=== PATIENT | female | born 1990 | race Caucasian/White ===

== ENCOUNTER → 2019-08-09 14:25 | Outpatient (CLI) | payer OTHER, SELFPAY ==
--- NOTE | 2019-08-09 | DI.ECHO.S_ITS ---
[place] [facility]---------+ [facility] +---------+ : : [address] : [address] [address] : : : : [id number] : : : : Phone: [phone]+ Echocardiogram Report + + :Name: TRISTAN DELGADO Study Date: 08/09/2019 Height: 65 in : :[facility] Weight: 130 lb : : Gender: Female BSA: 1.6 m2 : :: 1990 Age: 28 yrs BP: 116/72 mmHg: :Reason For Study: MURMUR : : Performed By: [facility] Staff : :Referring: DRE LADD : + + Interpretation Summary The left ventricle is normal in size. The ejection fraction is estimated to be 60-65%. The right ventricle is normal in size and function. No significant valvular pathology seen. Procedure: A two-dimensional transthoracic echocardiogram with color flow and Doppler was performed. The study quality was technically good. There is no prior echocardiogram noted for this patient. The patient was in normal sinus rhythm during the exam. Left Ventricle: The left ventricle is normal in size. There is normal left ventricular wall thickness. There is no thrombus. Left ventricular systolic function is normal. The ejection fraction is estimated to be 60-65%. Left ventricular wall motion is normal. Diastolic parameters suggest probable normal left ventricular diastolic function and normal filling pressures. Right Ventricle: The right ventricle is normal in size and function. The right ventricular systolic function is normal. Atria: The left atrium is borderline dilated. Right atrial size is normal. The interatrial septum is intact with no evidence for an atrial septal defect. Mitral Valve: The mitral valve is normal in structure and function. There is no mitral regurgitation noted. Aortic Valve: The aortic valve is trileaflet. The aortic valve opens well. There is no aortic valve stenosis. No aortic regurgitation is present. Tricuspid Valve: The tricuspid valve is normal in structure and function. There is trace tricuspid regurgitation. Pulmonary artery pressures cannot be estimated because of the lack of a measurable TR jet velocity. Pulmonic Valve: The pulmonic valve is normal in structure and function. There is trace pulmonic regurgitation. Great Vessels: The aortic root is normal size. The dimensions of the ascending aorta are normal. The pulmonary artery is normal size. The IVC is of normal diameter and collapses greater than 50% with a sniff. This suggests a low right atrial pressure of 3 mm Hg. Pericardium/ Pleura There is no pericardial effusion. There is no pleural effusion. MMode/2D Measurements & Calculations LVIDd: 4.3 cm LVOT diam: 1.8 cm LVIDs: 2.7 cm Ao root diam: 2.5 cm FS: 37.1 % EPSS: 0.21 cm IVSd: 1.0 cm LVPWd: 0.83 cm LV fuentes. diameter/BSA (cm/m^2): 2.6 LV sys. diameter/BSA (cm/m^2): 1.6 LA A2 area: 16.6 cm2 RA long axis: 4.3 cm LA A4 area: 19.1 cm2 RA area: 11.0 cm2 LA length (vol): 4.8 cm RA vol: 24.0 ml LA vol: 55.8 ml RA : 14.6 ml/m2 LA vol index: 33.9 ml/m2 TAPSE: 2.7 cm Doppler Measurements & Calculations Ao V2 max: 150.8 cm/sec LVOT Max Amor: 135.7 cm/sec Ao V2 mean: 105.4 cm/sec LV V1 max P.4 mmHg Ao max P.1 mmHg LV V1 VTI: 28.6 cm Ao mean P.0 mmHg JENNIFER(I,D): 2.4 cm2 Ao V2 VTI: 31.6 cm JENNIFER(V,D): 2.4 cm2 sev ratio: 0.91 JENNIFER indexed to BSA (cm^2/m^2): 1.5 MV E max amor: 99.0 cm/sec PA V2 max: 109.3 cm/sec MV A max amor: 61.1 cm/sec PA V2 mean: 77.6 cm/sec MV E/A: 1.6 PA mean P.7 mmHg Med Peak E' Amor: 12.5 cm/sec PA Accel Time: 0.14 sec E/E' med: 7.9 Lat Peak E' Amor: 19.3 cm/sec E/E' lat: 5.1 E/e' average: 6.5 MV dec time: 0.19 sec SV(LVOT): 75.6 ml Reading Physician:07:18 PM
== END ==
PROVIDERS: Visit Provider Physician Assistant
DX: R01.1 Cardiac murmur, unspecified (principal)
CPT/HCPCS: 93306

== ENCOUNTER → 2023-02-17 11:15 | Outpatient (CLI) | payer OTHER, SELFPAY | PROVIDERS: PCP Family Medicine; Visit Provider Family Medicine | DX: J02.9 Acute pharyngitis, unspecified (principal) | CPT/HCPCS: 87070 ==

== ENCOUNTER → 2023-04-06 13:03 | Outpatient (CLI) | payer OTHER, SELFPAY ==
[2023-04-06 19:43] LABS: Alanine Aminotransferase 15 IU/L (<35); Albumin 4.7 g/dL (3.5-5.0); Albumin Globulin Ratio 1.4 (1.0-2.8); Alkaline Phosphatase 51 U/L (38-126); Aspartate Aminotransferase 25 IU/L (14-36); BUN Creatinine Ratio 14.9 (6-22); Bilirubin Total 0.2 mg/dL (0.2-1.3); Blood Urea Nitrogen 10 mg/dL (7-17); Calcium 9.5 mg/dL (8.4-10.2); Carbon Dioxide 28 mmol/L (22-32); Chloride 103 mmol/L (98-107); Cholesterol 175 mg/dL (140-199); Estimated Glomerular Filt Rate > 60 mL/min (>60); Globulin 3.3 g/dL (1.7-4.1); Glucose 111 mg/dL (70-100); HDL Cholesterol 60 mg/dL (40-60); HEMOLYSIS < 15 (0-50); LDL Cholesterol Calculated 91 mg/dL (<100); Sodium 139 mmol/L (137-145); Triglycerides 118 mg/dL (35-150)
[2023-04-06 19:50] LABS: Add Manual Diff / Slide Review NO; Basophils Absolute Auto 0 /uL (0-100); Basophils Percent Auto 0.7 % (0-2); Eosinophils Absolute Auto 0 /uL (0-450); Eosinophils Percent Auto 1.1 % (2-4); Hematocrit 34.7 % (36-46); Hemoglobin 11.4 g/dL (12.0-16.0); Lymphocytes Absolute Auto 1200 /uL (1100-4500); Lymphocytes Percent Auto 28.3 % (25-40); Mean Corpuscular HGB Conc 32.9 % (30-36); Mean Corpuscular Hemoglobin 25.5 PG (26-34); Mean Corpuscular Volume 77.6 fL (80-100); Monocytes Absolute Auto 400 /uL (0-900); Monocytes Percent Auto 9.1 % (3-14); Neutrophils Absolute Auto 2700 /uL (1500-7000); Neutrophils Percent Auto 60.8 % (50-75); Platelet Count 301 X10^3/uL (150-400); Red Blood Cell Count 4.47 X10^6/uL (4.0-5.2); White Blood Cell Count 4.4 X10^3/uL (4.5-11.0)
[2023-04-06 20:17] LABS: Ferritin 4 ng/mL (6-137)
[2023-04-06 20:32] LABS: Vitamin B12 Reflex MMA if <400 276 pg/mL (239-931)
[2023-04-11 14:42] LABS: Methylmalonic Acid,Serum 177 nmol/L (0-378)
== END ==
PROVIDERS: PCP Family Medicine; Visit Provider Family Medicine
DX: Z13.1 Encounter for screening for diabetes mellitus (principal); Z13.6 Encounter for screening for cardiovascular disorders; Z78.9 Other specified health status
CPT/HCPCS: 80053; 80061; 82607; 82728; 83921; 85025

== ENCOUNTER → 2023-07-20 10:52 | Outpatient (CLI) | payer OTHER, SELFPAY ==
[2023-07-20 19:17] LABS: Add Manual Diff / Slide Review NO; Basophils Absolute Auto 100 /uL (0-100); Basophils Percent Auto 0.9 % (0-2); Eosinophils Absolute Auto 0 /uL (0-450); Eosinophils Percent Auto 0.5 % (2-4); Hematocrit 35.5 % (36-46); Hemoglobin 11.7 g/dL (12.0-16.0); Lymphocytes Absolute Auto 1400 /uL (1100-4500); Lymphocytes Percent Auto 19.2 % (25-40); Mean Corpuscular HGB Conc 33.1 % (30-36); Mean Corpuscular Volume 78.8 fL (80-100); Monocytes Absolute Auto 600 /uL (0-900); Neutrophils Absolute Auto 5000 /uL (1500-7000); Neutrophils Percent Auto 70.4 % (50-75); Platelet Count 296 X10^3/uL (150-400); Red Cell Distribution Width 15.8 % (11.6-14.8); White Blood Cell Count 7.1 X10^3/uL (4.5-11.0)
[2023-07-20 19:57] LABS: Ferritin 5 ng/mL (6-137)
[2023-07-20 20:12] LABS: Vitamin B12 304 pg/mL (239-931)
== END ==
PROVIDERS: PCP Family Medicine; Visit Provider Family Medicine
DX: D50.9 Iron deficiency anemia, unspecified (principal); E53.8 Deficiency of other specified B group vitamins
CPT/HCPCS: 82607; 82728; 85025

== ENCOUNTER → 2023-10-27 12:02 | Outpatient (CLI) | payer OTHER, SELFPAY ==
[2023-10-27 19:23] LABS: Add Manual Diff / Slide Review NO; Basophils Absolute Auto 0 /uL (0-100); Basophils Percent Auto 0.6 % (0-2); Eosinophils Absolute Auto 0 /uL (0-450); Eosinophils Percent Auto 0.8 % (2-4); Hematocrit 37.7 % (36-46); Hemoglobin 12.5 g/dL (12.0-16.0); Lymphocytes Absolute Auto 1500 /uL (1100-4500); Mean Corpuscular HGB Conc 33.3 % (30-36); Mean Corpuscular Hemoglobin 26.9 PG (26-34); Mean Corpuscular Volume 80.9 fL (80-100); Monocytes Absolute Auto 600 /uL (0-900); Monocytes Percent Auto 9.8 % (3-14); Neutrophils Absolute Auto 3700 /uL (1500-7000); Neutrophils Percent Auto 63.8 % (50-75); Platelet Count 286 X10^3/uL (150-400); Red Blood Cell Count 4.65 X10^6/uL (4.0-5.2); Red Cell Distribution Width 17.2 % (11.6-14.8); White Blood Cell Count 5.9 X10^3/uL (4.5-11.0)
[2023-10-27 19:35] LABS: HEMOLYSIS < 15 (0-50); Iron 99 ug/dL (37-170)
[2023-10-27 19:51] LABS: Percent Iron Saturation 25 % (15-50); Total Iron Binding Capacity 403 ug/dL (265-497); Transferrin 330 mg/dL (206-381)
[2023-10-27 20:18] LABS: Ferritin 6 ng/mL (6-137)
[2023-10-27 20:32] LABS: Vitamin B12 Reflex MMA if <400 293 pg/mL (239-931)
[2023-11-03 00:57] LABS: Methylmalonic Acid,Serum 241 nmol/L (0-378)
== END ==
PROVIDERS: PCP Family Medicine; Visit Provider Family Medicine
DX: E53.8 Deficiency of other specified B group vitamins (principal); D50.9 Iron deficiency anemia, unspecified
CPT/HCPCS: 82607; 82728; 83540; 83550; 83921; 85025; 86900; 86901

== ENCOUNTER → 2024-02-15 13:09 | Outpatient (CLI) | payer OTHER, SELFPAY ==
[2024-02-15 20:11] LABS: HEMOLYSIS < 15 (0-50); Iron 89 ug/dL (37-170)
[2024-02-15 20:22] LABS: Percent Iron Saturation 22 % (15-50); Total Iron Binding Capacity 396 ug/dL (265-497); Transferrin 323 mg/dL (206-381)
[2024-02-15 20:25] LABS: Add Manual Diff / Slide Review NO; Basophils Absolute Auto 0 /uL (0-100); Basophils Percent Auto 0.4 % (0-2); Eosinophils Absolute Auto 0 /uL (0-450); Eosinophils Percent Auto 0.8 % (2-4); Hematocrit 40.7 % (36-46); Hemoglobin 13.7 g/dL (12.0-16.0); Lymphocytes Absolute Auto 1500 /uL (1100-4500); Lymphocytes Percent Auto 29.8 % (25-40); Mean Corpuscular HGB Conc 33.6 % (30-36); Mean Corpuscular Hemoglobin 28.3 PG (26-34); Mean Corpuscular Volume 84.2 fL (80-100); Monocytes Absolute Auto 400 /uL (0-900); Monocytes Percent Auto 8.4 % (3-14); Neutrophils Absolute Auto 3200 /uL (1500-7000); Neutrophils Percent Auto 60.6 % (50-75); Platelet Count 263 X10^3/uL (150-400); Red Blood Cell Count 4.83 X10^6/uL (4.0-5.2); Red Cell Distribution Width 15.8 % (11.6-14.8); White Blood Cell Count 5.2 X10^3/uL (4.5-11.0)
[2024-02-15 20:26] LABS: LDL Cholesterol Direct 137 mg/dL (<100)
[2024-02-15 20:50] LABS: Ferritin 7 ng/mL (6-137)
[2024-02-15 21:04] LABS: Vitamin B12 Reflex MMA if <400 327 pg/mL (239-931)
[2024-02-19 09:12] LABS: Methylmalonic Acid,Serum 139 nmol/L (0-378)
== END ==
PROVIDERS: PCP Family Medicine; Visit Provider Family Medicine
DX: E53.8 Deficiency of other specified B group vitamins (principal); D50.9 Iron deficiency anemia, unspecified; R53.83 Other fatigue; Z13.6 Encounter for screening for cardiovascular disorders
CPT/HCPCS: 82607; 82728; 83540; 83550; 83721; 83921; 85025

== ENCOUNTER → 2024-06-13 08:59 | Outpatient (CLI) | payer OTHER, SELFPAY ==
[2024-06-13 20:03] LABS: Ferritin 7 ng/mL (6-137)
[2024-06-13 20:17] LABS: Vitamin B12 500 pg/mL (239-931)
[2024-07-03 15:07] LABS: Cholesterol,Total 184
[2024-07-03 15:08] LABS: HDL Cholesterol 68
[2024-07-03 15:13] LABS: Non-HDL Cholesterol 116
[2024-07-03 15:15] LABS: Triglycerides 59
[2024-07-03 15:22] LABS: LDL-P 788
[2024-07-03 15:23] LABS: LDL Size 21.4
[2024-07-03 15:24] LABS: LP-IR Score <25
== END ==
PROVIDERS: PCP Family Medicine; Visit Provider Family Medicine
DX: E78.2 Mixed hyperlipidemia (principal); E53.8 Deficiency of other specified B group vitamins; D50.8 Other iron deficiency anemias
CPT/HCPCS: 80061; 82607; 82728; 83704; 83721

== ENCOUNTER → 2024-10-07 09:08 | Outpatient (CLI) | payer OTHER, SELFPAY ==
--- NOTE | 2024-10-07 09:09 | DI.MRI.S_ITS ---
PROCEDURE: MR ANKLE RT WO CON INDICATIONS: SPRAIN LIGAMENT OF RT ANKLE TECHNIQUE: Noncontrast sagittal T1 spin echo and T2 fast spin echo with fat saturation, axial proton density fast spin echo and T2 fast spin echo with fat saturation, coronal T1 spin echo and T2 fast spin echo with fat saturation through the ankle/hindfoot. COMPARISON: [facility], CR, XR FOOT 3 VIEWS WEIGHT BEARING RIGHT, 09/16/2024, 14:38. FINDINGS: Image quality: Excellent. Bones and joints: No acute trabecular bone injury or fracture. No hindfoot coalitions. No osteochondral injuries of the talar dome. Minimal degenerative spurring of the dorsal talonavicular joint. Medial structures: The deltoid ligament and the spring ligament complex are intact. Mild tenosynovitis of the posterior tibialis and flexor digitorum longus tendons. The flexor hallucis longus tendon is intact. The posterior tibial neurovascular bundle appears normal within the tarsal tunnel, without extrinsic mass effect. Lateral structures: Remote prior moderate grade sprain of the anterior talofibular ligament. Probable sprain or partial avulsion of the calcaneofibular ligament at the fibular attachment. Posterior talofibular ligament appears to be intact. The anterior and posterior tibiofibular ligaments are intact. Mildly low lying peroneus brevis muscle belly extends deep to the superior peroneal retinaculum. The peroneus longus and brevis tendons demonstrate normal location and morphology. Ganglion cyst extending superiorly from the lateral sinus tarsi measures up to 15 x 14 x 16 mm. . Anterior structures: The tibialis anterior, extensor hallucis longus, and extensor digitorum longus tendons appear intact. The dorsal talonavicular ligament appears intact. Posterior and plantar structures: Achilles tendon is intact. Low lying soleus muscle belly is noted. The proximal plantar fascia is intact. No abductor digiti minimi muscle atrophy to suggest Luther neuropathy. IMPRESSION: 1. Remote prior grade grade 2 sprains of the anterior talofibular and calcaneofibular ligaments. 2. Mild tenosynovitis of the distal posterior tibialis and flexor digitorum longus tendons. 3. Small ganglion cyst arising from the lateral sinus tarsi measures up to 16 mm. Approved by: Jerome Ellison M.D. on 10/07/2024 at 16:35
== END ==
PROVIDERS: PCP Family Medicine; Referring Provider Orthopaedic Surgery Foot and Ankle Surgery; Visit Provider Orthopaedic Surgery Foot and Ankle Surgery
DX: S93.401A Sprain of unspecified ligament of right ankle, initial encounter (principal); M65.971 Unspecified synovitis and tenosynovitis, right ankle and foot; M67.471 Ganglion, right ankle and foot
CPT/HCPCS: 73721

== ENCOUNTER → 2024-10-20 08:54 | Outpatient (CLI) | payer BC, SELFPAY ==
[2024-10-20 10:10] LABS: LDL Cholesterol Direct 110 mg/dL (<100)
[2024-10-20 10:35] LABS: Ferritin 9 ng/mL (6-137)
[2024-10-20 11:07] LABS: Folate > 20.0 ng/mL (2.76-20.0); Vitamin B12 714 pg/mL (239-931)
== END ==
PROVIDERS: PCP Family Medicine; Referring Provider Family Medicine; Visit Provider Family Medicine
DX: E53.8 Deficiency of other specified B group vitamins (principal); E78.2 Mixed hyperlipidemia; D50.9 Iron deficiency anemia, unspecified; R53.83 Other fatigue
CPT/HCPCS: 36415; 82607; 82728; 82746; 83721

== ENCOUNTER → 2024-11-10 11:00 | Outpatient (CLI) | payer BC, SELFPAY ==
[2024-11-10 21:40] LABS: TSH w/ Reflex to FT4 1.45 uIU/mL (0.47-4.68)
== END ==
PROVIDERS: PCP Family Medicine; Visit Provider Family Medicine
DX: N93.9 Abnormal uterine and vaginal bleeding, unspecified (principal)
CPT/HCPCS: 84443

== ENCOUNTER → 2024-12-16 10:40 | Outpatient (CLI) | payer BC, SELFPAY ==
--- NOTE | 2024-12-16 10:41 | DI.US.S_ITS ---
PROCEDURE: US PELVIC COMPLETE INDICATIONS: SPOTTING X 6 MONTHS TECHNIQUE: Real-time scanning was performed of the pelvic organs, with image documentation. Additional endovaginal scanning was necessary due to incomplete visualization of the adnexal and endometrial structures by transabdominal scanning. COMPARISON: None. FINDINGS: Uterus: Uterus is anteverted and normal in size at 8.5 x 4.9 x 4.1 cm. The myometrium is homogeneous. The endometrium measures 11.6 mm combined thickness. Possible endometrial polyp 1.1 x 1.0 x 0.4 cm Ovaries: The right ovary measures 3.0 x 2.6 x 2.4 cm, with a calculated ovarian volume of 9.6 cc. The left ovary measures 5.0 x 3.0 x 2.5 cm, with a calculated ovarian volume of 19.7 cc. The ovaries have a normal sonographic appearance. Complex left ovarian cyst 2.3 x 1.9 x 1.7 cm. No adnexal masses are seen. Right ovary contains greater than 20 follicles Other: No pathologic free abdominal or pelvic fluid. IMPRESSION: Right ovary contains greater than 20 follicles. This finding has been correlated with polycystic ovarian syndrome in the proper clinical setting Possible endometrial polyp, 1.1 cm Approved by: Ayush Meng M.D. on 12/16/2024 at 17:28
== END ==
PROVIDERS: PCP Family Medicine; Referring Provider Family Medicine; Visit Provider Family Medicine
DX: N93.9 Abnormal uterine and vaginal bleeding, unspecified (principal); N83.292 Other ovarian cyst, left side
CPT/HCPCS: 76830; 76856